=== PATIENT | female | born 1985 | race Caucasian/White ===

== ENCOUNTER 2024-01-18 22:10 | Emergency (ER) | payer BC ==
[2024-01-18 22:35] LABS: HEMATOCRIT 40.5 % (37.0-47.0); HEMOGLOBIN 13.3 g/dL (11.5-16.5); MEAN CORPUSCULAR HEMOGLOBIN 29.6 pg (27.0-32.0); MEAN CORPUSCULAR HGB CONC 32.8 g/dL (31.0-35.0); MEAN PLATELET VOLUME 9.2 fL (6.0-10.0); RED BLOOD CELL COUNT 4.5 M/uL (3.80-5.80); RED CELL DISTRIBUTION WIDTH 12.3 % (11.0-16.0); WHITE BLOOD CELL COUNT,WBC 8.7 K/uL (4.0-11.0)
[2024-01-18 22:51] LABS: A/G RATIO 0.9 (0.8-2.0); ANION GAP 10.7 mmol/L (5.0-15.0); BILIRUBIN TOTAL 0.2 mg/dL (0.0-1.0); BUN/CREATININE RATIO 15.6 (6-25); CALCIUM 8.5 mg/dL (8.5-10.1); CARBON DIOXIDE,CO2 26.2 mmol/L (21.0-32.0); CREATININE 0.96 mg/dL (0.55-1.02); EST CRCL DRUG DOSING (CG) 80.15 mL/min; MAGNESIUM 1.5 mg/dL (1.8-2.4); POTASSIUM,K 3.9 mmol/L (3.5-5.1); PROTEIN TOTAL,TP 6.5 g/dL (6.4-8.2); TROPONIN I HIGH SENSITIVITY 6.7 pg/ml (<=60.4)
[2024-01-18] MEDS: Iopamidol 612 MG/ML 100 ML Bottle IV PRN (23:30)
[2024-01-18] MEDS: Sodium Chloride 0.9% 50 ML SDV FLUSH SCH (23:30)
[2024-01-19] MEDS: Rivaroxaban 10 MG Tab PO ONE (00:51)
[2024-01-19] MEDS: Heparin Sodium 5,000 Units/ML Vial IVPUSH ONE (00:51)
== END 2024-01-19 00:58 | disposition home or self-care (01) ==
LOC: LB.ED 22:10
DX: I26.94 Multiple subsegmental thrombotic pulmonary emboli without acute cor pulmonale (principal); I10 Essential (primary) hypertension; E11.9 Type 2 diabetes mellitus without complications; I25.10 Atherosclerotic heart disease of native coronary artery without angina pectoris; F17.210 Nicotine dependence, cigarettes, uncomplicated; Z79.82 Long term (current) use of aspirin; Z79.899 Other long term (current) drug therapy; Z88.1 Allergy status to other antibiotic agents; Z79.84 Long term (current) use of oral hypoglycemic drugs; Z79.01 Long term (current) use of anticoagulants
CPT/HCPCS: 36415; 71045; 71275; 80053; 83735; 84484; 85027; 85379; 93005; 96365; 96375; 99285; A9270; J1644; J3475; J3490; Q9967